=== PATIENT | male | born 1990 | race Caucasian/White ===

== ENCOUNTER 2016-10-20 01:58 | Emergency (ER) | payer BC ==
--- NOTE | 2016-10-20 06:16 | ER ---
ADMIT: 10/20/2016 RM/LOC: ER [facility] MR#: [id number] [facility] [id number] [place], [place] [id number] CHARLES BOLES [address] [place] [address] Emergency Room Report SEX: M AGE: 25 : 1990 DATE: 10/20/2016 The patient is a 25-year-old male, sustained right great toe injury stabbing it yesterday. Exam consistent with subungual hematoma. Otherwise stable vital signs. X-ray, negative. Treated with nail trephination with relief of hematoma, bacitracin, and dressing. Advised to keep clean and dry. Bacitracin dressing daily. Follow up with Dr. Rodriguez as needed. Philip Pinto MD/ fortunato JOB #: [id number] CC: Philip Pinto MD, Attending Physician Brian Rodriguez MD, Family Physician Brian Rodriguez MD
== END 2016-10-20 02:40 | disposition home or self-care (01) ==
LOC: ER 01:58
DX: S90.211A Contusion of right great toe with damage to nail, initial encounter (principal); F17.210 Nicotine dependence, cigarettes, uncomplicated; W45.8XXA Other foreign body or object entering through skin, initial encounter; Y92.009 Unspecified place in unspecified non-institutional (private) residence as the place of occurrence of the external cause